=== PATIENT | male | born 1940 | race American Indian/Alaskan Native ===

== ENCOUNTER 2017-07-22 13:21 | Emergency (ER) | payer MEDICARE ==
[2017-07-22 13:29] VITALS: BP 145/71
--- NOTE | 2017-07-22 13:44 | Emergency Department Report ---
Blank Doc - Documentation Documentation: Patient is a 76-year-old [place] male who is presenting with chest discomfort. Patient is adamant that he is not having any pain when he states he is feeling a twitching sensation in several places on the chest mostly on the left for the past 2 days that is intermittent lasting only seconds at a time. Patient denies any shortness of breath fevers chills cough nausea vomiting diarrhea. Patient states she saw her doctor 5 months ago as well as heart was fine. Patient is not the best historian. Because of the patient's age basic labs will be done just to medically clear him
[2017-07-22 14:03] LABS: Basophils % (Auto) 0.9 % (0.0-1.8); Eosinophils % (Auto) 0.4 % (0.0-4.3); Hematocrit 36.7 % (35.5-45.6); Hemoglobin 12.5 gm/dl (11.8-15.2); Lymphocytes # (Auto) 1.3 K/mm3 (1.2-5.4); Mean Corpuscular HGB Conc 34 % (32-34); Mean Corpuscular Hemoglobin 29 pg (28-32); Mean Corpuscular Volume 86 fl (84-94); Monocytes # (Auto) 0.4 K/mm3 (0.0-0.8); Monocytes % (Auto) 8.5 % (0.0-7.3); Platelet Count 266 K/mm3 (140-440); Red Blood Count 4.25 M/mm3 (3.65-5.03); Red Cell Distribution Width 14.7 % (13.2-15.2)
[2017-07-22 14:21] LABS: BUN/Creatinine Ratio 27; Blood Urea Nitrogen 19 mg/dL (9-20); Calcium 8.9 mg/dL (8.4-10.2); Hemolysis Index 11
--- NOTE | 2017-07-22 14:40 | Emergency Department Report ---
HPI - General Chief Complaint: Chest Pain Time Seen by Provider: 07/22/17 13:42 - HPI HPI: This is a 76-year-old male who presents to ED complaining of weird sensation in his upper left common chest region for couple days. Patient states it's not really pain but just a red sensation. Patient denies any heavy lifting, fever, shortness of breath. Patient was initially seen by Dr. Chambers. (see HPI note). Patient states he has no other complaints. ED Past Medical Hx - Past Medical History Hx Hypertension: Yes Additional medical history: Tremors, Heart palpitations,elevated cholesterol - Social History Smoking Status: Never Smoker Substance Use Type: None - Medications Home Medications: Home Medications Medication Instructions Recorded Confirmed Last Taken Type Metoprolol [Lopressor TAB] 25 mg PO DAILY #5 tablet 11/22/15 05/09/16 05/09/16 Rx Primidone [Mysoline] 1 tab PO DAILY 11/22/15 05/09/16 05/09/16 History Simvastatin [Zocor TAB] 40 mg PO QHS 11/22/15 05/09/16 05/09/16 History Losartan/Hydrochlorothiazide 1 each PO QDAY 01/13/16 05/09/16 05/09/16 History [Losartan-Hctz 100-25 mg Tab] Naproxen [Naprosyn] 375 mg PO BID #20 tablet 07/22/17 Unknown Rx methOCARBAMOL [Robaxin TAB] 500 mg PO BID #20 tab 07/22/17 Unknown Rx ED Review of Systems ROS: Stated complaint: MOVING SENSATION CHEST/SHOULDER/THIGH Other details as noted in HPI Constitutional: denies: chills, fever Eyes: denies: eye pain, eye discharge, vision change ENT: denies: ear pain, throat pain Respiratory: denies: cough, shortness of breath, wheezing Cardiovascular: denies: chest pain, palpitations Endocrine: no symptoms reported Gastrointestinal: denies: abdominal pain, nausea, diarrhea Genitourinary: denies: urgency, dysuria Musculoskeletal: denies: back pain, joint swelling, arthralgia Skin: denies: rash, lesions Neurological: denies: headache, weakness, paresthesias Psychiatric: denies: anxiety, depression Hematological/Lymphatic: denies: easy bleeding, easy bruising Physical Exam - Physical Exam Vital Signs: Vital Signs 07/22/17 13:26 Temperature 98.5 F Pulse Rate 65 Respiratory 18 Rate Blood Pressure 145/71 O2 Sat by Pulse 98 Oximetry Physical Exam: GENERAL: Alert and oriented x3, no apparent distress, Normal Gait, atraumatic. HEAD: Head is normocephalic and a-traumatic. EYES: Pupils are equal, round, and reactive to light and accommodation. NECK: Supple. Non edematous, No lymphadenopathy or thyromegaly. LUNGS: Symetrical with respiration, No wheezing, no rales or crackles, CTAB. HEART: S1, S2 present, regular rate and rhythm without murmur, no rubs, no gallops. Non tender to palpation EXTREMITIES/MUSCULOSKELETAL: No cyanosis, clubbing, rash, lesions or edema. Full ROM bilaterally. UE/LE Pulses 2+ bilaterally. LE and UE 5+ strength bilaterally, NEUROLOGIC: The patient is cooperative with no focal neurologic deficits. Normal speech. Normal sensation in bilateral upper and lower extremities, No loss of sensation, SKIN: Warm and dry, No lesions, No ulceration or induration present. ED Course Vital Signs 07/22/17 13:26 Temperature 98.5 F Pulse Rate 65 Respiratory 18 Rate Blood Pressure 145/71 O2 Sat by Pulse 98 Oximetry ED Medical Decision Making - Lab Data Result diagrams: 07/22/17 13:51 07/22/17 13:51 Laboratory Last Values WBC 4.9 K/mm3 (4.5-11.0) 07/22/17 13:51 RBC 4.25 M/mm3 (3.65-5.03) 07/22/17 13:51 Hgb 12.5 gm/dl (11.8-15.2) 07/22/17 13:51 Hct 36.7 % (35.5-45.6) 07/22/17 13:51 MCV 86 fl (84-94) 07/22/17 13:51 MCH 29 pg (28-32) 07/22/17 13:51 MCHC 34 % (32-34) 07/22/17 13:51 RDW 14.7 % (13.2-15.2) 07/22/17 13:51 Plt Count 266 K/mm3 (140-440) 07/22/17 13:51 Lymph % (Auto) 26.0 % (13.4-35.0) 07/22/17 13:51 Alexander % (Auto) 8.5 % (0.0-7.3) H 07/22/17 13:51 Eos % (Auto) 0.4 % (0.0-4.3) 07/22/17 13:51 Baso % (Auto) 0.9 % (0.0-1.8) 07/22/17 13:51 Lymph # 1.3 K/mm3 (1.2-5.4) 07/22/17 13:51 Alexander # 0.4 K/mm3 (0.0-0.8) 07/22/17 13:51 Eos # 0.0 K/mm3 (0.0-0.4) 07/22/17 13:51 Baso # 0.0 K/mm3 (0.0-0.1) 07/22/17 13:51 Seg Neutrophils % 64.2 % (40.0-70.0) 07/22/17 13:51 Seg Neutrophils # 3.2 K/mm3 (1.8-7.7) 07/22/17 13:51 Sodium 141 mmol/L (137-145) 07/22/17 13:51 Potassium 3.4 mmol/L (3.6-5.0) L 07/22/17 13:51 Chloride 100.4 mmol/L (98-107) 07/22/17 13:51 Carbon Dioxide 28 mmol/L (22-30) 07/22/17 13:51 Anion Gap 16 mmol/L 07/22/17 13:51 BUN 19 mg/dL (9-20) 07/22/17 13:51 Creatinine 0.7 mg/dL (0.8-1.5) L 07/22/17 13:51 Estimated GFR > 60 ml/min 07/22/17 13:51 BUN/Creatinine Ratio 27 % 07/22/17 13:51 Glucose 88 mg/dL (75-100) 07/22/17 13:51 Calcium 8.9 mg/dL (8.4-10.2) 07/22/17 13:51 Troponin T < 0.010 ng/mL (0.00-0.029) 07/22/17 13:51 - Medical Decision Making 76-year-old male presents to ED with mostly related chest wall discomfort ED course: Patient sates that he seen no pain at all. CBC BMP EKG all within normal limits troponin negative Vital signs are normal patient is in no acute distress Discussed with patient follow-up with primary care physician. Discussed the patient and take medications as prescribed. Patient has no neurological deficit. Patient is alert and oriented 3 and understands all instructions given. Critical care attestation.: If time is entered above; I have spent that time in minutes in the direct care of this critically ill patient, excluding procedure time. ED Disposition Clinical Impression: Musculoskeletal chest pain, Muscle spasm Disposition: TO HOME OR SELFCARE Is pt being admited?: No Does the pt Need Aspirin: No Condition: Stable Instructions: Chest Pain (ED), Costochondritis (ED), Trigger Point Pain (ED), Musculoskeletal Pain (ED) Additional Instructions: Make sure to follow up with the primary care physician as discussed. Take all your medications as you've been prescribed. If you have any worsening symptoms or develop new symptoms please return to ED immediately. Prescriptions: methOCARBAMOL [Robaxin TAB] 500 mg PO BID #20 tab Naproxen [Naprosyn] 375 mg PO BID #20 tablet Referrals: [facility] [place] [Outside] - 3-[address] [facility] [Outside] - 3-5 Days [facility] [Outside] - 3-5 Days Time of Disposition: 14:49
== END 2017-07-22 15:06 | disposition home or self-care (01) ==
LOC: ED 13:21
DX: R07.89 Other chest pain (principal); M62.838 Other muscle spasm; I10 Essential (primary) hypertension
CPT/HCPCS: 36415; 80048; 84484; 85025; 93005; 93010